=== PATIENT | male | born 1980 | race African-American/Black ===

== ENCOUNTER 2020-06-06 18:05 | Inpatient (IN) ==
[~2020-06-06 18:05] MED LIST: CEFUROXIME INJ 1,500 MG in SYRINGE 1 EACH IV ONE
[2020-06-06] MEDS ORDERED: DEXTROSE 50% 25 GM/50 ML VIAL IV PRN (19:08)
[2020-06-06] MEDS ORDERED: GLUCAGON 1 MG VIAL IM PRN (19:08)
[2020-06-06] MEDS ORDERED: ZALEPLON 5 MG CAPSULE PO PRN (19:13)
[2020-06-06] MEDS ORDERED: CLORAZEPATE 3.75 MG TABLET PO PRN (21:38)
[2020-06-06] MEDS ORDERED: INFLUENZA VIRUS VACCINE 0.5 ML SYRINGE IM ONE (21:44)
[2020-06-06] MEDS ORDERED: SODIUM CHLORIDE 0.9% 1,000 ML IV SCH (22:00)
[2020-06-06 22:54] LABS: Basophils % 0.3 % (0.0-0.8); Eosinophils # 0.1 10*3/uL (0.0-0.87); Hematocrit 44.4 VOL% (42.0-52.0); Hemoglobin 15.5 GM/DL (14.0-18.0); Immature Granulocytes % 0.6 %; Immature Granulocytes Absolute 0.05 #; Lymphocytes # 2.5 10*3/uL (1.4-4.0); Lymphocytes % 28.5 % (21.2-54.2); Mean Corpuscular HGB Conc 34.9 GM/DL (32-36); Mean Platelet Volume 10.2 FL (9.6-12.0); Monocytes % 6.4 % (1.7-12.7); Neutrophils % 63.2 % (38.7-73.9); Platelet Count 282 T/CUMM (130-400); Red Blood Count 5.35 MC/CUMM (3.8-5.5); Red Cell Distribution Width 13.2 % (9.3-17.3); White Blood Count 8.9 T/CUMM (4-12)
[2020-06-06 22:58] LABS: Albumin 3.9 G/DL (3.4-5.0); Bilirubin,Total 0.5 MG/DL (0.2-1.0); Calcium 8.7 MG/DL (8.5-10.1); Osmolality,Calculated 276.8 MOS/KG (273-304); Total Protein 7.6 G/DL (6.4-8.3)
[2020-06-07] MEDS: CHLORHEXIDINE 4% SOLN 118 ML BOTTLE TOP SCH ×3 (00:15→12:40)
[2020-06-07] MEDS: CHLORHEXIDINE 0.12% ORAL RINSE 60 ML BOTTLE SWISH/SPIT SCH ×4 (01:20→20:17)
[2020-06-07] MEDS ORDERED: PAPAVERINE 60 MG/2 ML VIAL ONE (04:24)
[2020-06-07] MEDS ORDERED: VANCOMYCIN 1,000 MG VIAL ONE (04:25)
[2020-06-07] MEDS ORDERED: VANCOMYCIN 500 MG VIAL ONE (04:25)
[2020-06-07 05:47] LABS: ABG Base Excess 1.4 MMOL/L (-2.5-2.5); ABG HCO3 25.7 MMOL/L (20-26); ABG Oxygen Saturation 97.7 % (95-100); ABG PCO2 40.5 MM HG (35-48); ABG PH 7.416 (7.35-7.45); ABG PO2 96.9 MM HG (80-95); ABG TCO2 21.9 MMOL/L (23-27)
[2020-06-07] MEDS ORDERED: SUFentanil 250 MCG/5 ML AMP ONE (05:48)
[2020-06-07] MEDS ORDERED: MIDAZOLAM 10 MG/2 ML VIAL ONE ×2 (05:48→13:26)
[2020-06-07] MEDS ORDERED: MINERAL OIL/PETROLATUM OPH OINT 3.5 GM TUBE ONE (05:49)
[2020-06-07] MEDS ORDERED: CEFUROXIME INJ 1,500 MG in SYRINGE 1 EACH IV ONE (06:00)
[2020-06-07] MEDS ORDERED: SODIUM BICARBONATE 50 MEQ/50 ML VIAL IV ONE ×2 (07:18→11:26)
[2020-06-07] MEDS ORDERED: NITROPRUSSIDE 50 MG/2 ML VIAL ONE (07:18)
[2020-06-07] MEDS ORDERED: CALCIUM CHLORIDE 1,000 MG/10 ML SYRINGE IV ONE (07:19)
[2020-06-07] MEDS ORDERED: PHENYLEPHRINE DRIP 40 MG/250 ML PREMIX IV ONE (07:19)
[2020-06-07] MEDS ORDERED: POTASSIUM CHLORIDE RIDER 100 ML IV ONE (07:19)
[2020-06-07] MEDS ORDERED: ALBUMIN 5% 12.5 GM/250 ML VIAL IV ONE ×2 (07:19→07:20)
[2020-06-07 07:51] LABS: ABG Base Excess -0.6 MMOL/L (-2.5-2.5); ABG PCO2 38.7 MM HG (35-48); ABG TCO2 20.7 MMOL/L (23-27); Glucose Heart Surgery 112 MG/DL (74-106); Hematocrit Heart Surgery 42.2 PERCENT (42-52); Hemoglobin Heart Surgery 13.7 G/DL (14.0-18.0); Ionized Calcium Arterial 1.45 MMOL/L (1.21-1.46); PCO2 Patient Temp Arterial 38.7 MMHG; Patient Temperature 37 CELCIUS; Potassium Heart/CVR 3.6 MMOL/L (3.5-5.1); Sodium Heart/CVR 140 MMOL/L (135-145)
[2020-06-07 08:08] LABS: Bacteria,Urine Occasional /HPF (Few); Bilirubin,Urine Negative (Negative); Blood, Urine Negative (Negative); Glucose,Urine (UA) Negative (Negative); Ketones,Urine Negative (Negative); Mucus,Urine Occasional /LPF (Occasional); Nitrite,Urine Negative (Negative); Protein,Urine Negative; RBC,Urine 1 /HPF (0-4); Squamous Epithelial Cell,Urine Occasional /HPF (0-10); Urine Appearance CLEAR (Clear); Urine Color Yellow (Yellow); Urine Specific Gravity 1.015 (1.001-1.035); Urine Urobilinogen < 2.0 EU/DL (0.2-1.0); WBC,Urine <1 /HPF (0-6)
[2020-06-07 09:33] LABS: Hematocrit Heart Surgery 30.8 PERCENT (42-52); PCO2 Patient Temp Venous 41.6 MM HG; PH Patient Temp Venous 7.395; PO2 Patient Temp Venous 37.1 MM HG; Potassium Heart/CVR 5.5 MMOL/L (3.5-5.1); VBG Base Excess 0.7 MEQ/L (0-4); VBG HCO3 24.7 MEQ/L (24-28); VBG Oxygen Saturation 76.8 %; VBG PCO2 48.1 MMHG (41-51); VBG PH 7.352; VBG PO2 45.7 MMHG (17-40)
[2020-06-07] MEDS ORDERED: THROMBIN TOPICAL (RECOMBINANT) 5,000 UNIT VIAL TOP ONE (10:06)
[2020-06-07 10:20] LABS: Hematocrit Heart Surgery 34.9 PERCENT (42-52); Hemoglobin Heart Surgery 11.3 G/DL (14.0-18.0); PCO2 Patient Temp Venous 43.2 MM HG; PH Patient Temp Venous 7.392; PO2 Patient Temp Venous 45.7 MM HG; Potassium Heart/CVR 5.1 MMOL/L (3.5-5.1); VBG Base Excess 1.1 MEQ/L (0-4); VBG PCO2 43.2 MMHG (41-51); VBG PH 7.392; VBG PO2 45.7 MMHG (17-40)
[2020-06-07 10:57] LABS: Hematocrit Heart Surgery 33.4 PERCENT (42-52); Hemoglobin Heart Surgery 10.8 G/DL (14.0-18.0); PCO2 Patient Temp Venous 42.2 MM HG; PH Patient Temp Venous 7.406; PO2 Patient Temp Venous 44.1 MM HG; Potassium Heart/CVR 4.3 MMOL/L (3.5-5.1); VBG Base Excess 1.6 MEQ/L (0-4); VBG HCO3 25.5 MEQ/L (24-28); VBG Oxygen Saturation 76.9 %; VBG PCO2 42.2 MMHG (41-51); VBG PH 7.406; VBG PO2 44.1 MMHG (17-40)
[2020-06-07] MEDS ORDERED: diphenhydrAMINE 50 MG/1 ML VIAL ONE (11:09)
[2020-06-07] MEDS ORDERED: FAMOTIDINE 20 MG/2 ML VIAL IV ONE (11:10)
[2020-06-07 11:19] LABS: ABG Base Excess -0.1 MMOL/L (-2.5-2.5); ABG HCO3 24.4 MMOL/L (20-26); ABG PCO2 38.4 MM HG (35-48); ABG PH 7.411 (7.35-7.45); ABG TCO2 21.7 MMOL/L (23-27); Glucose Heart Surgery 293 MG/DL (74-106); Hematocrit Heart Surgery 35.1 PERCENT (42-52); Hemoglobin Heart Surgery 11.4 G/DL (14.0-18.0); Ionized Calcium Arterial 1.53 MMOL/L (1.21-1.46); PCO2 Patient Temp Arterial 38.4 MMHG; PH Patient Temp Arterial 7.411; Patient Temperature 37 CELCIUS; Potassium Heart/CVR 3.4 MMOL/L (3.5-5.1); Sodium Heart/CVR 135 MMOL/L (135-145)
[2020-06-07] MEDS ORDERED: LIDOCAINE 2% 5 ML VIAL ONE ×2 (11:26→12:57)
[2020-06-07] MEDS ORDERED: PROTAMINE SULFATE 250 MG/25 ML VIAL IV ONE (11:26)
[2020-06-07] MEDS ORDERED: MAGNESIUM SULFATE 5 GM/10 ML VIAL IV ONE (11:26)
[2020-06-07] MEDS ORDERED: ALBUMIN 25% 25 GM/100 ML VIAL IV ONE (11:26)
[2020-06-07] MEDS ORDERED: DEXTROSE 5% KCL 20 MEQ 40 MEQ/2,000 ML BAG IV ONE (11:26)
[2020-06-07] MEDS ORDERED: MANNITOL 100 GM/500 ML BAG IV ONE (11:26)
[2020-06-07] MEDS ORDERED: POTASSIUM CHLORIDE 20 MEQ/10 ML VIAL ONE (11:27)
[2020-06-07] MEDS ORDERED: FUROSEMIDE 20 MG/2 ML VIAL ONE (11:27)
[2020-06-07] MEDS ORDERED: PROTAMINE SULFATE 50 MG/5 ML VIAL IV ONE ×3 (11:27→12:30)
[2020-06-07] MEDS ORDERED: methylPREDNISolone SOD SUC 1,000 MG/8 ML VIAL ONE (11:27)
[2020-06-07] MEDS ORDERED: HEPARIN 10,000 UNIT/10 ML VIAL ONE (11:27)
[2020-06-07] MEDS ORDERED: NITROGLYCERIN DRIP 50 MG/250 ML BOTTLE IV ONE (11:56)
[2020-06-07] MEDS ORDERED: POTASSIUM CHLORIDE RIDER 10 MEQ in PREMIX 1 EACH IV PRN (12:17)
[2020-06-07] MEDS ORDERED: INSULIN REGULAR 100 UNIT/ML IV ONE (12:17)
[2020-06-07] MEDS ORDERED: MAGNESIUM SULF RIDER 4 GM in PREMIX 1 EACH IV PRN (12:17)
[2020-06-07] MEDS ORDERED: DEXTROSE 50% 25 GM/50 ML VIAL IV PRN ×2 (12:17)
[2020-06-07] MEDS ORDERED: CHLORHEXIDINE 4% SOLN 118 ML BOTTLE TOP PRN (12:17)
[2020-06-07] MEDS ORDERED: ONDANSETRON 4 MG/2 ML VIAL IV PRN (12:17)
[2020-06-07] MEDS ORDERED: PHENYLEPHRINE DRIP 40 MG/250 ML PREMIX IV PRN (12:17)
[2020-06-07] MEDS ORDERED: INSULIN REGULAR 100 UNIT/ML IV PRN (12:17)
[2020-06-07] MEDS ORDERED: INSULIN REGULAR DRIP 100 ML IV SCH (12:17)
[2020-06-07] MEDS ORDERED: MAGNESIUM SULF RIDER 2 GM in PREMIX 1 EACH IV PRN (12:17)
[2020-06-07] MEDS ORDERED: NITROPRUSSIDE 100 MG in DEXTROSE 5% 250 ML IV PRN (12:17)
[2020-06-07] MEDS ORDERED: VECURONIUM 10 MG VIAL IV PRN ×2 (12:17)
[2020-06-07] MEDS ORDERED: ACETAMINOPHEN 650 MG SUPP RECTAL PRN (12:17)
[2020-06-07] MEDS ORDERED: MIDAZOLAM 10 MG/2 ML VIAL IV PRN (12:17)
[2020-06-07] MEDS ORDERED: MIDAZOLAM 2 MG/2 ML VIAL IV PRN (12:17)
[2020-06-07] MEDS ORDERED: CALCIUM CHLORIDE 1,000 MG/10 ML SYRINGE IV PRN (12:17)
[2020-06-07] MEDS ORDERED: ALBUMIN 5% 12.5 GM in PREMIX 1 EACH IV PRN (12:17)
[2020-06-07] MEDS ORDERED: SODIUM CHLORIDE 0.45% 1,000 ML IV SCH ×2 (12:17)
[2020-06-07] MEDS ORDERED: MORPHINE 10 MG/1 ML VIAL IV PRN (12:17)
[2020-06-07 12:30] LABS: ABG Base Excess 0.6 MMOL/L (-2.5-2.5); ABG Oxygen Saturation 99.7 % (95-100); ABG PCO2 40.8 MM HG (35-48); ABG PH 7.402 (7.35-7.45); Glucose Heart Surgery 158 MG/DL (74-106); Hematocrit Heart Surgery 31.7 PERCENT (42-52); Hemoglobin Heart Surgery 10.3 G/DL (14.0-18.0); Potassium Heart/CVR 3.6 MMOL/L (3.5-5.1)
[2020-06-07] MEDS: POTASSIUM CHLORIDE RIDER 20 MEQ in PREMIX 1 EACH IV PRN (12:33)
[2020-06-07 12:38] LABS: Basophils % 0.2 % (0.0-0.8); Eosinophils # 0.1 10*3/uL (0.0-0.87); Eosinophils % 0.4 % (0.00-10.9); Hematocrit 29.2 VOL% (42.0-52.0); Immature Granulocytes Absolute 0.16 #; Lymphocytes # 1.4 10*3/uL (1.4-4.0); Lymphocytes % 8.3 % (21.2-54.2); Mean Corpuscular HGB Conc 34.2 GM/DL (32-36); Mean Corpuscular Volume 85.6 FL (87-102); Mean Platelet Volume 10.3 FL (9.6-12.0); Monocytes % 2.8 % (1.7-12.7); Neutrophils % 87.3 % (38.7-73.9); Platelet Count 205 T/CUMM (130-400); Red Blood Count 3.41 MC/CUMM (3.8-5.5); Red Cell Distribution Width 13.2 % (9.3-17.3); White Blood Count 16.8 T/CUMM (4-12)
[2020-06-07] MEDS: LACTATED RINGERS 250 ML IV PRN ×4 (12:56→23:00)
[2020-06-07] MEDS ORDERED: SODIUM CHLORIDE 0.9% 2,000 ML IV ONE (12:57)
[2020-06-07] MEDS ORDERED: ETOMIDATE 40 MG/20 ML VIAL IV ONE (12:57)
[2020-06-07] MEDS ORDERED: LACTATED RINGERS 1,000 ML IV ONE (12:57)
[2020-06-07] MEDS ORDERED: SODIUM CHLORIDE 0.9% 100 ML IV ONE (12:57)
[2020-06-07] MEDS ORDERED: CALCIUM CHLORIDE 1,000 MG/10 ML VIAL IV ONE (12:57)
[2020-06-07] MEDS ORDERED: VECURONIUM 10 MG VIAL IV ONE (12:57)
[2020-06-07] MEDS ORDERED: ePHEDrine 50 MG/ML VIAL ONE (12:57)
[2020-06-07] MEDS ORDERED: SEVOFLURANE 1 UNIT/15 MINUTE INH ONE (12:57)
[2020-06-07] MEDS ORDERED: ESMOLOL 100 MG/10 ML VIAL IV ONE (12:57)
[2020-06-07] MEDS ORDERED: AMINOCAPROIC ACID 5,000 MG/20 ML VIAL ONE (12:57)
[2020-06-07] MEDS ORDERED: HEPARIN/NACL 0.9% 2 UNITS/ML 500 ML IV ONE (12:58)
[2020-06-07] MEDS ORDERED: PHENYLEPHRINE 10 MG/1 ML VIAL IV ONE (12:58)
[2020-06-07 12:59] LABS: INR 1.3; PT Patient Result 13.6 SECS (9.8-11.9)
[2020-06-07 13:05] LABS: CKMB % 2.3 %
[2020-06-07 13:08] LABS: Troponin I 4.19 NG/ML (0.00-0.045)
[2020-06-07 13:24] LABS: Albumin 3.3 G/DL (3.4-5.0); Calcium 10.1 MG/DL (8.5-10.1); Osmolality,Calculated 284.3 MOS/KG (273-304); Total Protein 6.2 G/DL (6.4-8.3)
[2020-06-07 14:07] LABS: ABG Base Excess 1.2 MMOL/L (-2.5-2.5); ABG HCO3 25.5 MMOL/L (20-26); ABG Oxygen Saturation 99.4 % (95-100); ABG PCO2 40.5 MM HG (35-48); ABG PH 7.414 (7.35-7.45); ABG TCO2 23.1 MMOL/L (23-27); Glucose Heart Surgery 123 MG/DL (74-106); Hematocrit Heart Surgery 34.5 PERCENT (42-52); Hemoglobin Heart Surgery 11.2 G/DL (14.0-18.0); Potassium Heart/CVR 4.2 MMOL/L (3.5-5.1)
[2020-06-07] MEDS: MORPHINE 4 MG/1 ML VIAL IV PRN ×3 (15:21→23:49)
[2020-06-07 16:12] LABS: ABG Base Excess 0.1 MMOL/L (-2.5-2.5); ABG Oxygen Saturation 97.2 % (95-100); ABG PCO2 47.8 MM HG (35-48); ABG PH 7.354 (7.35-7.45); ABG TCO2 27.5 MMOL/L (23-27); Glucose Heart Surgery 157 MG/DL (74-106); Hemoglobin Heart Surgery 11.7 G/DL (14.0-18.0); Potassium Heart/CVR 4.2 MMOL/L (3.5-5.1)
[2020-06-07] MEDS ORDERED: SODIUM CHLORIDE 0.9% 1,000 ML IV PRN (17:05)
[2020-06-07] MEDS: INSULIN REGULAR 100 UNIT/ML SUBCUT SCH ×2 (17:32→20:11)
[2020-06-07 18:01] LABS: ABG Base Excess -0.1 MMOL/L (-2.5-2.5); ABG HCO3 24.3 MMOL/L (20-26); ABG Oxygen Saturation 98.5 % (95-100); ABG PCO2 46.5 MM HG (35-48); ABG PH 7.352 (7.35-7.45); ABG TCO2 23.4 MMOL/L (23-27); Glucose Heart Surgery 193 MG/DL (74-106); Hemoglobin Heart Surgery 10.7 G/DL (14.0-18.0); Potassium Heart/CVR 4.5 MMOL/L (3.5-5.1)
[2020-06-07] MEDS: CEFUROXIME INJ 1,500 MG in SYRINGE 1 EACH IV SCH (19:05)
[2020-06-07 20:05] LABS: CKMB % 2.4 %
[2020-06-07 20:07] LABS: Troponin I 4.65 NG/ML (0.00-0.045)
[2020-06-08] MEDS: INSULIN REGULAR 100 UNIT/ML SUBCUT SCH ×5 (00:09→17:07)
[2020-06-08] MEDS: MORPHINE 4 MG/1 ML VIAL IV PRN (03:08)
[2020-06-08 03:24] LABS: Basophils % 0.1 % (0.0-0.8); Hematocrit 27.3 VOL% (42.0-52.0); Hemoglobin 9.4 GM/DL (14.0-18.0); Immature Granulocytes % 0.5 %; Lymphocytes # 1.2 10*3/uL (1.4-4.0); Mean Corpuscular HGB Conc 34.4 GM/DL (32-36); Mean Corpuscular Volume 86.1 FL (87-102); Mean Platelet Volume 10.3 FL (9.6-12.0); Monocytes % 3.1 % (1.7-12.7); Neutrophils % 90.3 % (38.7-73.9); Platelet Count 259 T/CUMM (130-400); Red Blood Count 3.17 MC/CUMM (3.8-5.5); White Blood Count 19.8 T/CUMM (4-12)
[2020-06-08 03:57] LABS: CKMB % 1.9 %
[2020-06-08 04:02] LABS: Troponin I 4.23 NG/ML (0.00-0.045)
[2020-06-08 04:04] LABS: Albumin 3.8 G/DL (3.4-5.0); Bilirubin,Direct 0.17 MG/DL (0.0-0.20); Bilirubin,Total 0.7 MG/DL (0.2-1.0); Calcium 9.3 MG/DL (8.5-10.1); Osmolality,Calculated 275.8 MOS/KG (273-304); Total Protein 7.2 G/DL (6.4-8.3)
[2020-06-08 04:35] LABS: ABG Base Excess 2.1 MMOL/L (-2.5-2.5); ABG HCO3 26.3 MMOL/L (20-26); ABG Oxygen Saturation 96.4 % (95-100); ABG PCO2 39.8 MM HG (35-48); ABG PH 7.432 (7.35-7.45); ABG PO2 79.6 MM HG (80-95); ABG TCO2 24.2 MMOL/L (23-27); Glucose Heart Surgery 164 MG/DL (74-106); Hematocrit Heart Surgery 29.2 PERCENT (42-52); Hemoglobin Heart Surgery 9.4 G/DL (14.0-18.0); Potassium Heart/CVR 4.1 MMOL/L (3.5-5.1)
[2020-06-08] MEDS: POTASSIUM CHLORIDE RIDER 20 MEQ in PREMIX 1 EACH IV PRN (04:44)
[2020-06-08] MEDS ORDERED: KETOROLAC 30 MG/1 ML VIAL IV PRN (06:14)
[2020-06-08] MEDS: CEFUROXIME INJ 1,500 MG in SYRINGE 1 EACH IV SCH ×2 (08:55→23:16)
[2020-06-08] MEDS: CHLORHEXIDINE 0.12% ORAL RINSE 60 ML BOTTLE SWISH/SPIT SCH ×3 (08:55→21:32)
[2020-06-08] MEDS ORDERED: METOPROLOL TARTRATE 25 MG TABLET PO SCH (09:00)
[2020-06-08 12:45] LABS: CKMB % 1.2 %
[2020-06-08 12:47] LABS: Troponin I 3.33 NG/ML (0.00-0.045)
[2020-06-08] MEDS: KETOROLAC 30 MG/1 ML VIAL IV SCH ×2 (13:58→21:31)
[2020-06-08] MEDS ORDERED: ZALEPLON 5 MG CAPSULE PO PRN (16:13)
[2020-06-08] MEDS ORDERED: GLUCAGON 1 MG VIAL IM PRN (16:13)
[2020-06-08] MEDS ORDERED: POTASSIUM CHLORIDE 20 MEQ TABLET PO PRN (16:13)
[2020-06-08] MEDS ORDERED: ACETAMINOPHEN 325 MG TABLET PO PRN (16:13)
[2020-06-08] MEDS ORDERED: DEXTROSE 50% 25 GM/50 ML VIAL IV PRN (16:13)
[2020-06-08] MEDS ORDERED: ONDANSETRON 4 MG/2 ML VIAL IV PRN (16:13)
[2020-06-08] MEDS ORDERED: MAGNESIUM SULF RIDER 2 GM in PREMIX 1 EACH IV PRN (16:13)
[2020-06-08] MEDS ORDERED: SODIUM CHLOR 0.45% KCL 20 MEQ 20 MEQ/1,000 ML BAG IV SCH (16:13)
[2020-06-08] MEDS ORDERED: MAGNESIUM HYDROXIDE SUSP 30 ML UDCUP PO PRN (16:13)
[2020-06-08] MEDS ORDERED: MAGNESIUM SULF RIDER 4 GM in PREMIX 1 EACH IV PRN (16:13)
[2020-06-08] MEDS ORDERED: ALUMINUM/MAGNES/SIMETH MAX STR 30 ML UDCUP PO PRN (16:13)
[2020-06-08] MEDS: DOCUSATE SODIUM 100 MG CAPSULE PO SCH (16:43)
[2020-06-08] MEDS: FERROUS SULFATE 325 MG TABLET PO SCH (16:43)
[2020-06-08] MEDS: ASPIRIN EC 325 MG TABLET PO SCH (16:43)
[2020-06-08] MEDS: PANTOPRAZOLE 40 MG TABLET PO SCH (16:43)
[2020-06-08] MEDS: METOPROLOL TARTRATE 25 MG TABLET PO SCH (21:31)
[2020-06-09] MEDS: KETOROLAC 30 MG/1 ML VIAL IV SCH ×4 (03:02→20:46)
[2020-06-09 05:56] LABS: Basophils % 0.1 % (0.0-0.8); Hematocrit 27.5 VOL% (42.0-52.0); Hemoglobin 9.2 GM/DL (14.0-18.0); Immature Granulocytes % 0.8 %; Immature Granulocytes Absolute 0.13 #; Lymphocytes # 1.9 10*3/uL (1.4-4.0); Mean Corpuscular HGB Conc 33.5 GM/DL (32-36); Mean Corpuscular Volume 89.3 FL (87-102); Mean Platelet Volume 10.9 FL (9.6-12.0); Monocytes % 7.7 % (1.7-12.7); Neutrophils % 79.4 % (38.7-73.9); Platelet Count 234 T/CUMM (130-400); Red Blood Count 3.08 MC/CUMM (3.8-5.5); Red Cell Distribution Width 13.4 % (9.3-17.3); White Blood Count 15.9 T/CUMM (4-12)
[2020-06-09] MEDS ORDERED: FUROSEMIDE 40 MG/4 ML VIAL IV ONE (06:00)
[2020-06-09 06:22] LABS: Alanine Aminotransferase 32 U/L (16-61); Albumin 3.3 G/DL (3.4-5.0); Alkaline Phosphatase 61 U/L (45-117); Aspartate Amino Transferase 34 U/L (0-37); Bilirubin,Direct < 0.100 MG/DL (0.0-0.20); Bilirubin,Indirect 0.4 MG/DL (0.0-1.0); Blood Urea Nitrogen 24 MG/DL (7-18); Calcium 8.6 MG/DL (8.5-10.1); Estimated Glom Filtration Rate 159 ML/MIN; Glucose 117 MG/DL (74-106); Osmolality,Calculated 283.4 MOS/KG (273-304); Total Protein 6.7 G/DL (6.4-8.3)
[2020-06-09] MEDS: FERROUS SULFATE 325 MG TABLET PO SCH (09:25)
[2020-06-09] MEDS: PANTOPRAZOLE 40 MG TABLET PO SCH (09:26)
[2020-06-09] MEDS: DOCUSATE SODIUM 100 MG CAPSULE PO SCH (09:26)
[2020-06-09] MEDS: ASPIRIN EC 325 MG TABLET PO SCH (09:26)
[2020-06-09] MEDS: METOPROLOL TARTRATE 25 MG TABLET PO SCH ×2 (09:26→20:46)
[2020-06-09] MEDS: CHLORHEXIDINE 0.12% ORAL RINSE 60 ML BOTTLE SWISH/SPIT SCH ×2 (09:30→20:47)
[2020-06-09] MEDS: oxyCODONE/ACETAMINOPHEN 5-325 MG TABLET PO PRN (13:45)
[2020-06-10] MEDS: oxyCODONE/ACETAMINOPHEN 5-325 MG TABLET PO PRN ×2 (00:07→04:49)
[2020-06-10] MEDS: KETOROLAC 30 MG/1 ML VIAL IV SCH ×4 (02:37→20:24)
[2020-06-10 05:53] LABS: Basophils % 0.2 % (0.0-0.8); Eosinophils % 0.2 % (0.00-10.9); Hematocrit 25.4 VOL% (42.0-52.0); Hemoglobin 8.5 GM/DL (14.0-18.0); Immature Granulocytes % 1.1 %; Immature Granulocytes Absolute 0.13 #; Lymphocytes # 3.8 10*3/uL (1.4-4.0); Lymphocytes % 31.2 % (21.2-54.2); Mean Corpuscular HGB Conc 33.5 GM/DL (32-36); Mean Corpuscular Volume 88.2 FL (87-102); Mean Platelet Volume 10.8 FL (9.6-12.0); Monocytes % 9.5 % (1.7-12.7); Neutrophils % 57.8 % (38.7-73.9); Platelet Count 229 T/CUMM (130-400); Red Blood Count 2.88 MC/CUMM (3.8-5.5); Red Cell Distribution Width 13.2 % (9.3-17.3); White Blood Count 12.3 T/CUMM (4-12)
[2020-06-10 06:04] LABS: Alanine Aminotransferase 31 U/L (16-61); Albumin 3.1 G/DL (3.4-5.0); Alkaline Phosphatase 56 U/L (45-117); Aspartate Amino Transferase 28 U/L (0-37); Bilirubin,Indirect 0.3 MG/DL (0.0-1.0); Bilirubin,Total < 0.39 MG/DL (0.2-1.0); Blood Urea Nitrogen 25 MG/DL (7-18); Calcium 8.4 MG/DL (8.5-10.1); Estimated Glom Filtration Rate 143 ML/MIN; Glucose 89 MG/DL (74-106); Osmolality,Calculated 281.4 MOS/KG (273-304); Total Protein 6.2 G/DL (6.4-8.3)
[2020-06-10 06:31] LABS: Anisocytosis Slight; Platelet Estimate Normal; Target Cells Few
[2020-06-10] MEDS: ASPIRIN EC 325 MG TABLET PO SCH (09:33)
[2020-06-10] MEDS: METOPROLOL TARTRATE 25 MG TABLET PO SCH ×2 (09:34→20:25)
[2020-06-10] MEDS: DOCUSATE SODIUM 100 MG CAPSULE PO SCH (09:42)
[2020-06-10] MEDS: FERROUS SULFATE 325 MG TABLET PO SCH (09:44)
[2020-06-10] MEDS: PANTOPRAZOLE 40 MG TABLET PO SCH (09:44)
[2020-06-10] MEDS: ASCORBIC ACID 500 MG TABLET PO SCH ×2 (09:44→20:25)
[2020-06-10] MEDS: CHLORHEXIDINE 0.12% ORAL RINSE 60 ML BOTTLE SWISH/SPIT SCH ×2 (09:46→20:25)
[2020-06-10] MEDS: ATORVASTATIN 40 MG TABLET PO SCH (20:25)
[2020-06-11] MEDS: KETOROLAC 30 MG/1 ML VIAL IV SCH ×4 (03:00→21:32)
[2020-06-11 06:57] LABS: Basophils % 0.3 % (0.0-0.8); Eosinophils # 0.1 10*3/uL (0.0-0.87); Hematocrit 25.8 VOL% (42.0-52.0); Hemoglobin 8.5 GM/DL (14.0-18.0); Immature Granulocytes % 1.4 %; Immature Granulocytes Absolute 0.14 #; Lymphocytes # 2.8 10*3/uL (1.4-4.0); Lymphocytes % 27.7 % (21.2-54.2); Mean Corpuscular HGB Conc 32.9 GM/DL (32-36); Mean Corpuscular Volume 89.3 FL (87-102); Mean Platelet Volume 10.1 FL (9.6-12.0); Monocytes % 7.1 % (1.7-12.7); NRBC # 0.02 10*3/uL; Neutrophils % 62.5 % (38.7-73.9); Platelet Count 255 T/CUMM (130-400); Red Blood Count 2.89 MC/CUMM (3.8-5.5); White Blood Count 10.2 T/CUMM (4-12)
[2020-06-11 07:24] LABS: Eosinophils 1 % (0-10); Hypochromasia 1+; Lymphocytes 20 % (20-55); Microcytosis 1+; Platelet Estimate Adequate; Segmented Neutrophils 76 % (50-85); Total Cells Counted 100
[2020-06-11 07:41] LABS: Calcium 8.4 MG/DL (8.5-10.1); Osmolality,Calculated 280.5 MOS/KG (273-304)
[2020-06-11] MEDS: ASCORBIC ACID 500 MG TABLET PO SCH ×2 (09:45→21:32)
[2020-06-11] MEDS: ASPIRIN EC 325 MG TABLET PO SCH (09:46)
[2020-06-11] MEDS: FERROUS SULFATE 325 MG TABLET PO SCH (09:47)
[2020-06-11] MEDS: DOCUSATE SODIUM 100 MG CAPSULE PO SCH (09:47)
[2020-06-11] MEDS: PANTOPRAZOLE 40 MG TABLET PO SCH (09:47)
[2020-06-11] MEDS: METOPROLOL TARTRATE 25 MG TABLET PO SCH ×2 (09:48→21:32)
[2020-06-11] MEDS: CHLORHEXIDINE 0.12% ORAL RINSE 60 ML BOTTLE SWISH/SPIT SCH ×2 (10:01→22:14)
[2020-06-11] MEDS: oxyCODONE/ACETAMINOPHEN 5-325 MG TABLET PO PRN (15:38)
[2020-06-11] MEDS ORDERED: INFLUENZA VIRUS VACCINE 0.5 ML SYRINGE IM ONE (21:24)
[2020-06-11] MEDS: ATORVASTATIN 40 MG TABLET PO SCH (21:32)
[2020-06-12] MEDS: KETOROLAC 30 MG/1 ML VIAL IV SCH ×2 (01:41→09:54)
[2020-06-12 07:28] LABS: Basophils % 0.4 % (0.0-0.8); Eosinophils # 0.3 10*3/uL (0.0-0.87); Eosinophils % 2.4 % (0.00-10.9); Hematocrit 28.6 VOL% (42.0-52.0); Hemoglobin 9.7 GM/DL (14.0-18.0); Immature Granulocytes % 1.7 %; Immature Granulocytes Absolute 0.18 #; Lymphocytes # 2.6 10*3/uL (1.4-4.0); Lymphocytes % 24.8 % (21.2-54.2); Mean Corpuscular HGB Conc 33.9 GM/DL (32-36); Mean Corpuscular Volume 86.9 FL (87-102); Mean Platelet Volume 10.1 FL (9.6-12.0); Monocytes % 7.3 % (1.7-12.7); Neutrophils % 63.4 % (38.7-73.9); Platelet Count 270 T/CUMM (130-400); Red Blood Count 3.29 MC/CUMM (3.8-5.5); White Blood Count 10.4 T/CUMM (4-12)
[2020-06-12 08:13] LABS: Alanine Aminotransferase 64 U/L (16-61); Albumin 3.2 G/DL (3.4-5.0); Alkaline Phosphatase 64 U/L (45-117); Aspartate Amino Transferase 32 U/L (0-37); Bilirubin,Indirect 0.3 MG/DL (0.0-1.0); Bilirubin,Total < 0.39 MG/DL (0.2-1.0); Blood Urea Nitrogen 20 MG/DL (7-18); Calcium 8.6 MG/DL (8.5-10.1); Estimated Glom Filtration Rate 162 ML/MIN; Glucose 99 MG/DL (74-106); Osmolality,Calculated 281.4 MOS/KG (273-304); Total Protein 6.6 G/DL (6.4-8.3)
[2020-06-12 08:19] LABS: Troponin I 0.851 NG/ML (0.00-0.045)
[2020-06-12] MEDS: DOCUSATE SODIUM 100 MG CAPSULE PO SCH (09:55)
[2020-06-12] MEDS: ASPIRIN EC 325 MG TABLET PO SCH (09:56)
[2020-06-12] MEDS: CHLORHEXIDINE 0.12% ORAL RINSE 60 ML BOTTLE SWISH/SPIT SCH (09:56)
[2020-06-12] MEDS: FERROUS SULFATE 325 MG TABLET PO SCH (09:56)
[2020-06-12] MEDS: ASCORBIC ACID 500 MG TABLET PO SCH (09:56)
[2020-06-12] MEDS: PANTOPRAZOLE 40 MG TABLET PO SCH (09:56)
[2020-06-12] MEDS: METOPROLOL TARTRATE 25 MG TABLET PO SCH (10:01)
[2020-06-12 13:34] VITALS: BP 114/58
== END 2020-06-12 13:28 | disposition home health service (06) | DRG 236 ==
LOC: N.ICU 21:26 → N.CVR 06-07 11:43 → N.ICU 06-08 06:48 → N.TELES 06-08 19:53